=== PATIENT | female | born 1985 | race Caucasian/White ===

== ENCOUNTER 2024-02-18 22:19 | Emergency (ER) | payer OTHER ==
[~2024-02-18] VITALS: Ht 160 cm; Wt 90.7 kg
[2024-02-18 23:16] VITALS: BP 160/93; TEMP 98.4; O2SAT 99
== END 2024-02-18 23:16 | disposition home or self-care (01) ==
LOC: ER 22:24
DX: L03.312 Cellulitis of back [any part except buttock and flank] (principal)